=== PATIENT | female | born 1940 | race African-American/Black ===

== ENCOUNTER 2017-11-09 07:47 | Emergency (ER) | payer MEDICARE ==
[~2017-11-09] VITALS: Ht 165.1 cm; Wt 40.8 kg
[2017-11-09] MEDS ORDERED: SODIUM BICARBONATE 8.4% INJ 50ML SYRINGE ONE (07:55)
[2017-11-09] MEDS ORDERED: DEXTROSE 50% SYRINGE 50 ML IV ONE (07:56)
[2017-11-09] MEDS ORDERED: DEXTROSE (50%) 50ML SYRG IV ONE (08:30)
[2017-11-09] MEDS ORDERED: SODIUM BICARBONATE 8.4 % INJ 50ML VIAL IV ONE (08:30)
== END 2017-11-09 11:14 | disposition expired ==
LOC: ER 07:47
DX: I46.9 Cardiac arrest, cause unspecified (principal); J44.9 Chronic obstructive pulmonary disease, unspecified; I10 Essential (primary) hypertension
CPT/HCPCS: 92950; 96374; 99285; J7042